=== PATIENT | male | born 2000 | race Caucasian/White ===

== ENCOUNTER 2019-09-08 15:48 | Emergency (ER) | payer MEDICAID ==
[2019-09-08 15:59] VITALS: BP 138/53
[2019-09-08] MEDS ORDERED: BACITRACIN ZINC OINT 14 GM TOP STA (16:33)
[2019-09-08] MEDS ORDERED: TETANUS/DIPHTHERIA/PERTUSSIS 0.5 ML SYRINGE IM ONE (16:33)
[2019-09-08] MEDS ORDERED: LIDOCAINE 1%-EPI 1:100000 20 ML MDV SUBQ STA (16:33)
--- NOTE | 2019-09-08 16:51 | ED Physician Documentation ---
PD HPI UPPER EXT INJURY - Stated complaint Stated Complaint: L HAND INJURY - Chief complaint Chief Complaint: Laceration - History obtained from History obtained from: Patient - History of Present Illness Location: Left, Hand Type of injury: Blunt / blow (with a hammer) Where injury occurred: Work Timing - onset: Today Timing - duration: Hours (a few) Timing - details: Abrupt onset Improved by: Nothing Worsened by: Other (nothing) Associated symptoms: No: Weakness, Numbness, Tingling, Swelling Contributing factors: No: Anticoagulated, Prior ortho surgery Similar symptoms before: Has not had sx before Recently seen: Not recently seen - Treatment prior to arrival Treatment prior to arrival: none Review of Systems Ten Systems: 10 systems reviewed and negative Constitutional: denies: Fever Cardiac: reports: Reviewed and negative Respiratory: reports: Reviewed and negative GI: reports: Reviewed and negative Skin: reports: Laceration (s) Musculoskeletal: denies: Extremity pain, Extremity swelling Immunocompromised: reports: Reviewed and negative PD PAST MEDICAL HISTORY - Past Medical History Past Medical History: No - Past Surgical History Past Surgical History: No - Present Medications Home Medications: Ambulatory Orders Medication Instructions Recorded Confirmed No Known Home Medications 09/08/19 09/08/19 - Allergies Allergies/Adverse Reactions: Allergies Allergy/AdvReac Type Severity Reaction Status Date / Time No Known Drug Allergies Allergy Verified 09/08/19 15:57 - Social History Does the pt smoke?: No Smoking Status: Never smoker Does the pt drink ETOH?: No Does the pt have substance abuse?: No - Immunizations Immunizations are current?: No PD ED PE NORMAL - Vitals Vital signs reviewed: Yes - General General: Alert and oriented X 3, No acute distress, Well developed/nourished - HEENT HEENT: Atraumatic, Pharynx benign - Neck Neck: Supple, no meningeal sign - Cardiac Cardiac: RRR - Respiratory Respiratory: No respiratory distress - Abdomen Abdomen: Non distended - Male Male : Deferred - Rectal Rectal: Deferred - Derm Derm: Normal color, Warm and dry - Extremities Extremities: No deformity, No tenderness to palpate, Normal ROM s pain, No edema - Neuro Neuro: Alert and oriented X 3 Eye Opening: Spontaneous Motor: Obeys Commands Verbal: Oriented GCS Score: 15 - Psych Psych: Normal mood, Normal affect PD ED PE EXPANDED - Derm Derm: Laceration(s) (simple laceration of dorsal webbing of L hand between first and 2nd digit ) - Extremities Extremities: Laceration (between first and second webspace of L hand ). No: Deformity, Tenderness, Limited ROM, Swelling Results - Vitals Vitals: Oxygen O2 Source Room air - Rads (name of study) L hand xray Radiology: Final report received, EMP read contemporaneously (negative ), See rad report Procedures - Laceration (location) Hand left Dorsal Wound type: Linear Neurovascular status: Sensory intact, Motor intact Tendon involvement: Tendon intact Anesthesia: Lidocaine 1% with epi Wound Preparation: Irrigated copiously NS Deep layer closure: size #-0 - enter number (5-0), # sutures - enter number (5) Skin layer closure: Nylon Other: Patient tolerated well, No complications, Neurovascular intact, Dressing applied, Tetanus booster given Complexity: Simple PD MEDICAL DECISION MAKING - ED course Complexity details: reviewed results, re-evaluated patient, considered differential, d/w patient ED course: ddx - hand fracture, hand laceration, open fracture, tendon injury 19 y/o M with blunt trauma to L hand with laceration present which is minor, tendon intact, xray negative for fx. Updated tetanus. Repaired wound here in the ED and pt is stable for discharge with outpt f/u for suture removal. Departure - Departure Disposition: 01 Home, Self Care Clinical Impression: Laceration of left hand Qualifiers: Encounter type: initial encounter Condition: Stable Instructions: ED Laceration Ext Sutr Stap Tape Follow-Up: your, doctor [Other] - Within 1 week (for suture removal in 1 week) Discharge Date/Time: 09/08/19 18:38
--- NOTE | 2019-09-08 17:32 | XRAY Report ---
Reason: hammer to L hand Procedure Date: 09/08/2019 Accession Number: [id number] / [id number] Procedure: XR - Hand 3 View LT CPT Code: FULL RESULT: EXAM: LEFT HAND RADIOGRAPHY EXAM DATE: 09/08/2019 05:04 PM. CLINICAL HISTORY: Hammer to L hand. COMPARISON: None. TECHNIQUE: 3 views. FINDINGS: Bones: Normal. No fractures or bone lesions. Joints: Normal. No subluxations. Soft Tissues: Normal. No soft tissue swelling. IMPRESSION: Normal hand radiography. [facility]
== END 2019-09-08 18:38 | disposition home or self-care (01) ==
LOC: ED 15:48
DX: S61.412A Laceration without foreign body of left hand, initial encounter (principal); W22.8XXA Striking against or struck by other objects, initial encounter; Y99.0 Civilian activity done for income or pay; Z23 Encounter for immunization
CPT/HCPCS: 12002; 73130; 90471; 90715; 99282; 99283; A9270